=== PATIENT | male | born 1990 | race African-American/Black ===

== ENCOUNTER 2021-11-21 11:57 | Emergency (ER) | payer OTHER, SELFPAY ==
[2021-11-21 12:07] VITALS: BP 126/76; PULSE 82; RESP 14; TEMP 36.1; O2SAT 99; BMI 29.2
--- NOTE | 2021-11-21 12:09 | DI.RAD.S_ITS ---
PROCEDURE: XR CHEST 1V INDICATIONS: Chest pain TECHNIQUE: One view of the chest was acquired. COMPARISON: None. FINDINGS: Surgical changes and devices: None. Lungs and pleura: Lungs are clear. No pleural effusions or pneumothorax. Mediastinum: Mediastinal contours appear normal. Heart size is normal. Bones and chest wall: No suspicious bony lesions. Overlying soft tissues appear unremarkable. IMPRESSION: No acute cardiopulmonary process demonstrated radiographically. Dictated by: Epifanio Dougherty M.D. on 11/21/2021 at 12:42 Approved by: Epifanio Dougherty M.D. on 11/21/2021 at 12:42
[2021-11-21 12:30] LABS: Prothrombin Time 10.7 SECONDS (10.1-12.7)
[2021-11-21 12:32] LABS: PTT Partial Thromboplastin Tim 20 SECONDS (26.4-36.2)
[2021-11-21 12:33] LABS: Alanine Aminotransferase 23 IU/L (<50); Albumin Globulin Ratio 1.4 (1.0-2.8); Alkaline Phosphatase 57 U/L (38-126); Aspartate Aminotransferase 33 IU/L (17-59); BUN Creatinine Ratio 13.7 (6-22); Bilirubin Total 0.5 mg/dL (0.2-1.3); Blood Urea Nitrogen 17 mg/dL (9-20); Carbon Dioxide 25 mmol/L (22-32); Chloride 107 mmol/L (98-107); Creatine Kinase 236 U/L (55-170); Estimated Glomerular Filt Rate > 60.0 mL/min (>60); Globulin 2.8 g/dL (1.7-4.1); Glucose 97 mg/dL (70-100); HEMOLYSIS 33 (0-50); Lipase 81 U/L (23-300); Magnesium 1.9 mg/dL (1.6-2.3); Potassium 4.4 mmol/L (3.4-5.1); Sodium 137 mmol/L (137-145); Total Protein 6.8 g/dL (6.3-8.2)
[2021-11-21 12:47] LABS: Troponin I < 0.012 ng/mL (0.01-0.034)
[2021-11-21 12:49] LABS: CKMB % Relative Index 0.3 % (1.5-5.0); Creatine Kinase MB 0.75 ng/mL (<2.37)
[2021-11-21 13:35] LABS: Add Manual Diff / Slide Review NO; Basophils Absolute Auto 0 /uL (0-100); Basophils Percent Auto 0.9 % (0-2); Eosinophils Absolute Auto 200 /uL (0-450); Eosinophils Percent Auto 3.3 % (2-4); Hematocrit 43.1 % (41-53); Hemoglobin 14.4 g/dL (13.5-17.5); Lymphocytes Absolute Auto 1700 /uL (1100-4500); Lymphocytes Percent Auto 36.2 % (25-40); Mean Corpuscular HGB Conc 33.5 % (30-36); Mean Corpuscular Hemoglobin 29.2 PG (26-34); Mean Corpuscular Volume 87.1 fL (80-100); Monocytes Absolute Auto 200 /uL (0-900); Monocytes Percent Auto 5.1 % (3-14); Neutrophils Absolute Auto 2500 /uL (1500-7000); Neutrophils Percent Auto 54.5 % (50-75); Platelet Count 237 X10^3/uL (150-400); Red Blood Cell Count 4.95 X10^6/uL (4.5-5.9); Red Cell Distribution Width 13.1 % (11.6-14.8); White Blood Cell Count 4.7 X10^3/uL (4.5-11.0)
--- NOTE | 2021-11-21 14:44 | ED_ITS ---
HPI - Chest Pain <Kelby Acevedo PA-C - Last Filed: 11/21/21 16:06> General Chief Complaint: Chest Pain Stated Complaint: Chest pains Time Seen by Provider: 11/21/21 14:38 Source: patient Mode of arrival: Ambulatory Limitations: no limitations History of Present Illness HPI narrative: Patient is a 31-year-old male who presents to the ED complaining of substernal chest pain. He reports the 1st episode 2 days ago of which was substernal nonradiating sharp in nature. He states that the pain did subside. Pain came back yesterday same location just more severe. He presents today for evaluation and concern. He denies any shortness of breath nausea vomiting diarrhea fever diaphoresis syncope. No previous cardiac history denies any hypertension. No recent trauma reported or fall. Pain does not radiate through into the back. Nothing seems to make the pain better and nothing seems to make the pain worse movement has no change in the pain breathing has no change in the pain. Related Data Allergies Allergy/AdvReac Type Severity Reaction Status Date / Time Sulfa (Sulfonamide Allergy Verified 11/21/21 12:07 Antibiotics) Review of Systems <Kelby Acevedo PA-C - Last Filed: 11/21/21 16:06> Review of Systems ROS Unobtainable: All systems reviewed & are unremarkable except as noted in HPI and below Constitutional Constitutional: Denies chills, Denies fatigue, Denies fever(s), Denies frequent falls, Denies lethargy and Denies weakness Eyes Eyes: Denies change in vision, Denies eye discharge, Denies irritation and Denies loss of vision ENT Ears, Nose, Mouth, and Throat: Denies change in voice, Denies dizziness, Denies neck pain, Denies sore throat and Denies throat swelling Cardiovascular Cardiovascular: Reports chest pain, Denies irregular heart rhythm, Denies lightheadedness, Denies palpitations, Denies dyspnea, Denies dyspnea on exertion and Denies orthopnea Respiratory Respiratory: Denies cough, Denies dyspnea, Denies dyspnea on exertion and Denies wheezing Gastrointestinal Gastrointestinal: Denies abdominal pain, Denies change in bowel habits, Denies diarrhea, Denies nausea and Denies vomiting Genitourinary Genitourinary: Denies hematuria, Denies flank pain, Denies urinary incontinence and Denies urinary urgency Musculoskeletal Musculoskeletal: Denies back pain, Denies muscle weakness, Denies neck pain, Denies numbness and Denies tingling Integumentary/Breasts Skin/Breast: Denies pruritus, Denies erythema, Denies rash and Denies wounds Neurologic Neurologic: Denies behavioral changes, Denies confusion, Denies dizziness, Denies frequent falls, Denies loss of vision, Denies numbness, Denies tingling and Denies weakness Psychiatric Psychiatric: Denies anxiety, Denies behavioral changes, Denies confusion, Denies depression, Denies homicidal ideation and Denies suicidal ideation Endocrine Endocrine: Denies fatigue, Denies flushing and Denies palpitations Hematologic/Lymphatic Hematologic/Lymphatic: Denies easy bruising Allergic/Immunologic Allergic/Immunologic: Denies urticaria, Denies throat swelling and Denies wheezing Patient History <Kelby Acevedo PA-C - Last Filed: 11/21/21 16:06> Social History Smoking Status: Unknown if ever smoked Smoking Status: Unknown if ever smoked alcohol intake frequency: 0-2 drinks per day Substance Use Type: does not use Exam <Kelby Acevedo PA-C - Last Filed: 11/21/21 16:06> Initial Vital Signs Initial Vital Signs: Vital Signs Temperature 97.0 F L 11/21/21 12:07 Pulse Rate 82 11/21/21 12:07 Respiratory Rate 14 11/21/21 12:07 Blood Pressure 126/76 11/21/21 12:07 Pulse Oximetry 99 11/21/21 12:07 Const General: cooperative, healthy appearing, comfortable and well developed Nutritional Appearance: average body habitus Orientation: Orientation [facility] Head: normal to inspection, normocephalic and atraumatic Ears: hearing grossly normal bilaterally and external ears normal Nose: external nose normal and nares normal Face and sinus: normal facial exam Mouth: oral mucosae normal Chest Chest: normal inspection of the chest and normal palpation of entire chest wall Resp Effort & Inspection: normal respiratory effort and able to speak in complete sentences Auscultation: clear to auscultation bilaterally Percussion: percussion normal Cardio Palpation: normal PMI Rate: regular rate Rhythm: regular rhythm Heart Sounds: S1 normal and S2 normal GI Inspection: normal to inspection Palpation: soft and no hepatosplenomegaly Percussion: normal to percussion Auscultation: normal bowel sounds Skin General: no rashes or lesions noted <DO Arnav Puri Last Filed: 11/21/21 16:23> Initial Vital Signs Initial Vital Signs: Vital Signs Temperature 97.0 F L 11/21/21 12:07 Pulse Rate 82 11/21/21 12:07 Respiratory Rate 14 11/21/21 12:07 Blood Pressure 126/76 11/21/21 12:07 Pulse Oximetry 99 11/21/21 12:07 Course <Kelby Acevedo PA-C - Last Filed: 11/21/21 16:06> Orders Ordered: ED Orders 11/21/21 12:09 XR chest 1V Stat EKG-12 Lead Stat 11/21/21 12:15 Comprehensive Metabolic Panel Stat Lipase Stat Magnesium Stat Partial Thromboplastin Time Stat Prothrombin Time INR Stat Troponin & CK Cardiac Panel Stat 11/21/21 13:00 Complete Blood Count AUTO DIFF Stat Discontinued Medications Al Hydrox/Mg Hydrox/Simethicone 20 ml/ Lidocaine HCl 15 ml 0 ml PO NOW ONE Stop: 11/21/21 14:44 Last Admin: 11/21/21 15:04 Dose: 30 ml Documented by: MARIANAOTEM Vital Signs Vital signs: Vital Signs - 8 hr 11/21/21 12:07 11/21/21 15:40 Temperature 97.0 F L Pulse Rate 82 73 Respiratory Rate 14 18 Blood Pressure 126/76 121/74 Pulse Oximetry 99 100 <John Mauricio DO - Last Filed: 11/21/21 16:23> Orders Ordered: ED Orders 11/21/21 12:09 XR chest 1V Stat EKG-12 Lead Stat 11/21/21 12:15 Comprehensive Metabolic Panel Stat Lipase Stat Magnesium Stat Partial Thromboplastin Time Stat Prothrombin Time INR Stat Troponin & CK Cardiac Panel Stat 11/21/21 13:00 Complete Blood Count AUTO DIFF Stat Discontinued Medications Al Hydrox/Mg Hydrox/Simethicone 20 ml/ Lidocaine HCl 15 ml 0 ml PO NOW ONE Stop: 11/21/21 14:44 Last Admin: 11/21/21 15:04 Dose: 30 ml Documented by: KBROTEM Vital Signs Vital signs: Vital Signs - 8 hr 11/21/21 12:07 11/21/21 15:40 Temperature 97.0 F L Pulse Rate 82 73 Respiratory Rate 14 18 Blood Pressure 126/76 121/74 Pulse Oximetry 99 100 MDM - Chest Pain <Kelby Acevedo PA-C - Last Filed: 11/21/21 16:06> Differential Diagnosis Differential diagnosis: Likely other Lab Data Result diagrams: 11/21/21 13:00 11/21/21 12:15 Labs: Lab Results 11/21/21 11/21/21 11/21/21 Range/Units 12:15 12:15 13:00 WBC 4.7 (4.5-11.0) X10^3/uL RBC 4.95 (4.5-5.9) X10^6/uL Hgb 14.4 (13.5-17.5) g/dL Hct 43.1 (41-53) % MCV 87.1 (80-100) fL MCH 29.2 (26-34) PG MCHC 33.5 (30-36) % RDW 13.1 (11.6-14.8) % Plt Count 237 (150-400) X10^3/uL Neut % (Auto) 54.5 (50-75) % Lymph % (Auto) 36.2 (25-40) % Bartholomew % (Auto) 5.1 (3-14) % Eos % (Auto) 3.3 (2-4) % Baso % (Auto) 0.9 (0-2) % Neut # (Auto) 2500 (7118-1751) /uL Lymph # (Auto) 1700 (3417-3636) /uL Bartholomew # (Auto) 200 (0-900) /uL Eos # (Auto) 200 (0-450) /uL Baso # (Auto) 0 (0-100) /uL PT 10.7 (10.1-12.7) SECONDS INR 1.0 (0.9-1.3) APTT 20 L (26.4-36.2) SECONDS Sodium 137 (137-145) mmol/L Potassium 4.4 (3.4-5.1) mmol/L Chloride 107 (98-107) mmol/L Carbon Dioxide 25 (22-32) mmol/L BUN 17 (9-20) mg/dL Creatinine 1.24 (0.66-1.25) mg/dL Estimated GFR > 60.0 (>60) mL/min BUN/Creatinine Ratio 13.7 (6-22) Glucose 97 (70-100) mg/dL Calcium 9.0 (8.4-10.2) mg/dL Magnesium 1.9 (1.6-2.3) mg/dL Total Bilirubin 0.5 (0.2-1.3) mg/dL AST 33 (17-59) IU/L ALT 23 (<50) IU/L Alkaline Phosphatase 57 (38-126) U/L Total Creatine Kinase 236 H (55-170) U/L CK-MB (CK-2) 0.75 (<2.37) ng/mL CK-MB (CK-2) Rel Index 0.3 L (1.5-5.0) % Troponin I < 0.012 (0.01-0.034) ng/mL Total Protein 6.8 (6.3-8.2) g/dL Albumin 4.0 (3.5-5.0) g/dL Globulin 2.8 (1.7-4.1) g/dL Albumin/Globulin Ratio 1.4 (1.0-2.8) Lipase 81 (23-300) U/L MDM Narrative Medical decision making narrative: Patient was evaluated today for chest pain that was substernal nonradiating. GI cocktail eliminate all pain at this moment labs unremarkable EKG unremarkable I think it is likely that this is result of some ongoing gastritis and I would recommend that he take a PPI preventative or Tums as needed and to avoid foods that would trigger reflux. Patient is agreeable and will be discharged home. <John Mauricio, - Last Filed: 11/21/21 16:23> Lab Data Labs: Lab Results 11/21/21 11/21/21 11/21/21 Range/Units 12:15 12:15 13:00 WBC 4.7 (4.5-11.0) X10^3/uL RBC 4.95 (4.5-5.9) X10^6/uL Hgb 14.4 (13.5-17.5) g/dL Hct 43.1 (41-53) % MCV 87.1 (80-100) fL MCH 29.2 (26-34) PG MCHC 33.5 (30-36) % RDW 13.1 (11.6-14.8) % Plt Count 237 (150-400) X10^3/uL Neut % (Auto) 54.5 (50-75) % Lymph % (Auto) 36.2 (25-40) % Bartholomew % (Auto) 5.1 (3-14) % Eos % (Auto) 3.3 (2-4) % Baso % (Auto) 0.9 (0-2) % Neut # (Auto) 2500 (4033-5143) /uL Lymph # (Auto) 1700 (5871-5382) /uL Bartholomew # (Auto) 200 (0-900) /uL Eos # (Auto) 200 (0-450) /uL Baso # (Auto) 0 (0-100) /uL PT 10.7 (10.1-12.7) SECONDS INR 1.0 (0.9-1.3) APTT 20 L (26.4-36.2) SECONDS Sodium 137 (137-145) mmol/L Potassium 4.4 (3.4-5.1) mmol/L Chloride 107 (98-107) mmol/L Carbon Dioxide 25 (22-32) mmol/L BUN 17 (9-20) mg/dL Creatinine 1.24 (0.66-1.25) mg/dL Estimated GFR > 60.0 (>60) mL/min BUN/Creatinine Ratio 13.7 (6-22) Glucose 97 (70-100) mg/dL Calcium 9.0 (8.4-10.2) mg/dL Magnesium 1.9 (1.6-2.3) mg/dL Total Bilirubin 0.5 (0.2-1.3) mg/dL AST 33 (17-59) IU/L ALT 23 (<50) IU/L Alkaline Phosphatase 57 (38-126) U/L Total Creatine Kinase 236 H (55-170) U/L CK-MB (CK-2) 0.75 (<2.37) ng/mL CK-MB (CK-2) Rel Index 0.3 L (1.5-5.0) % Troponin I < 0.012 (0.01-0.034) ng/mL Total Protein 6.8 (6.3-8.2) g/dL Albumin 4.0 (3.5-5.0) g/dL Globulin 2.8 (1.7-4.1) g/dL Albumin/Globulin Ratio 1.4 (1.0-2.8) Lipase 81 (23-300) U/L Discharge Plan Departure Patient Disposition: Home Clinical Impression: Gastritis, Chest pain due to GERD Instructions: DI for Gastroesophageal Reflux Disease (GERD), DI for Gastritis Activity Restrictions/Additional Instructions: Were seen today for your chest pain which I believe is reluctant a result of reflux and some irritation to her stomach. I would recommend you take a once daily Pepcid OTC as directed or you can have Tums to take as needed. You can also research specific foods to avoid that can trigger with reflux. If he have no improvement in her symptoms she can return to the ED or you can follow-up with your PCP. Thank you for the opportunity to care for you today <John Mauricio, DO - Last Filed: 11/21/21 16:23> Cosign ED Attending Cosignature Attestation: Dr Mauricio Co-Sign Statement: I was available for consultation during this patient's emergency department visit. This chart is signed by myself for administrative purposes only. I did not have direct contact with this patient during this visit. They were seen independently by the APC.
[2021-11-21] MEDS: MAG HYDROX/ALUMINUM/SIMETH SUS 20 ML, LIDOCAINE VISCOUS 2% 15 ML PO (15:04)
[2021-11-21 15:40] VITALS: BP 121/74; PULSE 73; RESP 18; O2SAT 100
== END 2021-11-21 16:16 | disposition home or self-care (01) ==
PROVIDERS: Emergency Medicine; Emergency Provider Physician Assistant
DX: K29.70 Gastritis, unspecified, without bleeding (principal); K21.9 Gastro-esophageal reflux disease without esophagitis
CPT/HCPCS: 36415; 71045; 80053; 82550; 82553; 83690; 83735; 84484; 85025; 85610; 85730; 93005; 99284

== ENCOUNTER 2023-02-25 09:25 | Emergency (ER) | payer OTHER, SELFPAY ==
[2023-02-25 09:29] VITALS: BP 162/80; PULSE 111; RESP 16; TEMP 36.3; O2SAT 97; BMI 30.7
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
[2023-02-25] MEDS: BACITRACIN OINT 0.9 GM PCKT 1 APPLIC TOP (10:08)
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
== END 2023-02-25 10:12 | disposition home or self-care (01) ==
PROVIDERS: Emergency Provider Emergency Medicine
DX: T24.211A Burn of second degree of right thigh, initial encounter (principal); T31.0 Burns involving less than 10% of body surface; X15.8XXA Contact with other hot household appliances, initial encounter
CPT/HCPCS: 16020; 99282